=== PATIENT | female | born 1955 | race Caucasian/White ===

== ENCOUNTER 2017-05-19 14:45 | Emergency (ER) | payer OTHER ==
[~2017-05-19] VITALS: Ht 154.9 cm; Wt 81.6 kg
[2017-05-19 14:53] VITALS: BP_SYST 161
[2017-05-19] MEDS ORDERED: IPRATROPIUM/ALBUTEROL SULFATE 3 ML AMPUL.NEB INH ONE (16:00)
[2017-05-19] MEDS ORDERED: KETOROLAC TROMETHAMINE 60 MG/2 ML VIAL IM ONE (16:00)
[2017-05-19 17:14] VITALS: BP_SYST 142
== END 2017-05-19 17:14 | disposition home or self-care (01) ==
LOC: SED 14:45
DX: J06.9 Acute upper respiratory infection, unspecified (principal); E11.9 Type 2 diabetes mellitus without complications; I10 Essential (primary) hypertension; Z90.89 Acquired absence of other organs; Z90.710 Acquired absence of both cervix and uterus; Z88.0 Allergy status to penicillin
CPT/HCPCS: 36415; 71045; 86710; 96372; 99285; J1885

== ENCOUNTER 2017-11-17 06:13 | Emergency (ER) | payer OTHER ==
[~2017-11-17] VITALS: Ht 152.4 cm; Wt 81.6 kg
[2017-11-17 06:30] VITALS: BP_SYST 153
[2017-11-17] MEDS ORDERED: BACITRACIN 1 GM OINT TP ONE (07:30)
[2017-11-17 07:40] VITALS: BP_SYST 153
== END 2017-11-17 07:40 | disposition home or self-care (01) ==
LOC: SED 06:13
DX: R21 Rash and other nonspecific skin eruption (principal); I10 Essential (primary) hypertension; E11.9 Type 2 diabetes mellitus without complications; Z88.0 Allergy status to penicillin
CPT/HCPCS: 99282

== ENCOUNTER 2018-02-09 08:25 | Emergency (ER) | payer OTHER ==
[~2018-02-09] VITALS: Ht 142.2 cm; Wt 127.0 kg
[2018-02-09 08:25] VITALS: BP_SYST 163
[2018-02-09 10:30] VITALS: BP_SYST 148
== END 2018-02-09 10:30 | disposition home or self-care (01) ==
LOC: SED 08:25
DX: S83.92XA Sprain of unspecified site of left knee, initial encounter (principal); E11.29 Type 2 diabetes mellitus with other diabetic kidney complication; N28.9 Disorder of kidney and ureter, unspecified; I10 Essential (primary) hypertension; E78.00 Pure hypercholesterolemia, unspecified; Z90.89 Acquired absence of other organs; Z90.710 Acquired absence of both cervix and uterus; Z88.0 Allergy status to penicillin; X58.XXXA Exposure to other specified factors, initial encounter; Y93.89 Activity, other specified; Y92.89 Other specified places as the place of occurrence of the external cause; Y99.8 Other external cause status
CPT/HCPCS: 73564; 99284

== ENCOUNTER 2018-02-27 18:05 | Emergency (ER) | payer OTHER ==
[~2018-02-27] VITALS: Ht 152.4 cm; Wt 77.1 kg
[2018-02-27 18:19] VITALS: BP_SYST 160
[2018-02-27 19:37] VITALS: BP_SYST 160
== END 2018-02-27 19:36 | disposition home or self-care (01) ==
LOC: SED 18:05
DX: J02.8 Acute pharyngitis due to other specified organisms (principal); E11.9 Type 2 diabetes mellitus without complications; I10 Essential (primary) hypertension; E78.5 Hyperlipidemia, unspecified; Z88.0 Allergy status to penicillin
CPT/HCPCS: 71045; 82962; 99283